=== PATIENT | female | born 1965 | race African-American/Black ===

== ENCOUNTER 2024-03-28 05:10 | Emergency (ER) | payer OTHER ==
[~2024-03-28] VITALS: Ht 160 cm; Wt 75.0 kg
[2024-03-28 05:18] VITALS: O2SAT 98
[2024-03-28 05:43] VITALS: BP 221/101; PULSE 95; RESP 19; TEMP 36.50292; O2SAT 99
[2024-03-28] MEDS: HYDROMORPHONE HCL/PF 2MG/ML INJ IV ONE (05:45)
[2024-03-28] MEDS: DIPHENHYDRAMINE 50MG/ML VIAL IV ONE (05:45)
[2024-03-28] MEDS: DIPHENHYDRAMINE 50MG/ML VIAL IV NR (08:02)
[2024-03-28] MEDS ORDERED: HYDROMORPHONE HCL/PF 2MG/ML INJ IV ONE (08:45)
[2024-03-28] MEDS ORDERED: HYDROMORPHONE HCL/PF 1MG/ML INJ IV NR (10:00)
== END 2024-03-28 09:00 | disposition left against medical advice (07) ==
LOC: ER 05:10
DX: D57.00 Hb-SS disease with crisis, unspecified (principal); E11.9 Type 2 diabetes mellitus without complications; Z88.6 Allergy status to analgesic agent; Z53.21 Procedure and treatment not carried out due to patient leaving prior to being seen by health care provider
CPT/HCPCS: 96374; 96376; 99284; J1200; J1171; Z7610 ×3